=== PATIENT | male | born 1965 | race Caucasian/White ===

== ENCOUNTER 2018-09-03 20:10 | Emergency (ER) | payer SELFPAY ==
[~2018-09-03] VITALS: Ht 175.3 cm; Wt 118.2 kg
[2018-09-03 21:00] LABS: APPEARANCE, URINE CLEAR (CLEAR); BACTERIA, URINE AUTO NEGATIVE (NEGATIVE); BILIRUBIN, URINE AUTO NEGATIVE (NEGATIVE); BLOOD, URINE BLOOD NEGATIVE (NEGATIVE); COLOR, URINE STRAW (YELLOW); GLUCOSE, URINE (UA) AUTO NEGATIVE (NEGATIVE); KETONE, URINE AUTO NEGATIVE (NEGATIVE); LEUKOCYTE ESTERASE, URINE AUTO NEGATIVE (NEGATIVE); NITRITE, URINE AUTO NEGATIVE (NEGATIVE); PROTEIN, URINE AUTO NEGATIVE (NEGATIVE); RBC, URINE AUTO 1 /HPF (0-3); SPECIFIC GRAVITY URINE AUTO 1.006 (1.002-1.035); SQUAMOUS EPITHELIAL CELL UR AU 0 /HPF (0-6); UROBILINOGEN, URINE AUTO 0.2 mg/dL (0.0-2.0); WBC, URINE AUTO 0 /HPF (0-3)
[2018-09-03] MEDS ORDERED: ONDANSETRON 4MG/2ML VIAL (J2405) IV ONE (22:15)
[2018-09-03] MEDS ORDERED: NS 1,000 ML IV ONE (22:15)
[2018-09-03 23:09] LABS: BASO % 0.5 % (0.0-1.0); EOS # 0.2 10^3/uL (0.0-0.50); EOS % 2.1 % (0.0-3.0); HEMATOCRIT 41.5 % (42.0-52.0); HEMOGLOBIN 14.2 g/dl (13.5-17.5); LYMPH # 2.2 10^3/uL (1.5-4.5); LYMPH % 26.9 % (24.0-44.0); MEAN CORPUSCULAR HEMOGLOBIN 30.5 pg (27.0-33.0); MEAN CORPUSCULAR HGB CONC 34.2 g/dl (32.0-36.5); MEAN CORPUSCULAR VOLUME 89.2 fl (80.0-96.0); MONO # 0.7 10^3/uL (0.0-0.8); MONO % 8.4 % (0.0-5.0); NEUTROPHILS % 61.9 % (36.0-66.0); PLATELET COUNT, AUTOMATED 255 10^3/uL (150-450); RED BLOOD COUNT 4.65 10^6/uL (4.30-6.10); WHITE BLOOD COUNT 8.1 10^3/uL (4.0-10.0)
[2018-09-03 23:30] LABS: ALBUMIN 4.1 GM/DL (3.2-5.2); ALT/SGPT 40 U/L (12-78); BILIRUBIN,DIRECT 0.3 MG/DL (0.0-0.2); BLOOD UREA NITROGEN 16 MG/DL (7-18); CALCIUM LEVEL 9.2 MG/DL (8.5-10.1); CARBON DIOXIDE LEVEL 28 MEQ/L (21-32); CHLORIDE LEVEL 105 MEQ/L (98-107); CREATININE FOR GFR 1.16 MG/DL (0.70-1.30); GLOMERULAR FILTRATION RATE > 60.0 (>56); GLUCOSE, FASTING 107 MG/DL (70-100); LIPASE 123 U/L (73-393); POTASSIUM SERUM 3.8 MEQ/L (3.5-5.1); SODIUM LEVEL 140 MEQ/L (136-145); TOTAL PROTEIN 7.2 GM/DL (6.4-8.2)
[2018-09-03 23:32] LABS: CK-MB VALUE MASS 1.2 NG/ML (<3.6); CPK CREATINE PHOSPHOKINASE 117 U/L (39-308); MB/CK RELATIVE INDEX 1.03 (< OR =4); TROPONIN I < 0.02 NG/ML (< 0.10)
[2018-09-03] MEDS ORDERED: KETOROLAC 30 MG/ML VIAL (J1885) IV ONE (23:45)
--- NOTE | 2018-09-04 00:19 | REPVR ---
EXAM: CT Abdomen and Pelvis Without Contrast EXAM DATE/TIME: 09/03/2018 11:23 PM CLINICAL HISTORY: 52 years old, male; Abdominal pain; Flank; Right; Additional info: R flank pain TECHNIQUE: Imaging protocol: Axial computed tomography images of the abdomen and pelvis without contrast. Coronal and sagittal reformatted images were created and reviewed. Radiation optimization: All CT scans at this facility use at least one of these dose optimization techniques: automated exposure control; mA and/or kV adjustment per patient size (includes targeted exams where dose is matched to clinical indication); or iterative reconstruction. COMPARISON: No relevant prior studies available. Study limitations: Evaluation for mass, inflammatory change, including bowel wall/fold thickening, viscera, and vasculature, is suboptimal without contrast. FINDINGS: LUNG BASES: No infiltrate or effusion. VASCULAR: No abdominal aortic aneurysm or retroperitoneal hematoma. Minimal atherosclerosis. PERITONEAL : No free air or free fluid. GI: No hiatal hernia. The stomach contains ingested material, fluid and gas. No perigastric or periduodenal inflammatory stranding. No asymmetric small bowel dilation to suggest obstruction. There is no focal mesenteric inflammatory stranding. No mesenteric lymphadenopathy by size criteria. The sigmoid colon is redundant and folded upon itself in the anterior central abdomen. The folded segment is distended up to 7 cm in diameter. No rotation of the mesentery is seen to suggest that this is a volvulus. Scattered fecal material and gas within portions of the colon. The cecum is distended up to 6.5 cm with fecal material. Clinical correlation for constipation. There is diverticulosis but no evidence of acute diverticulitis. The appendix is not visualized. No secondary inflammation of the cecal apex. HEPATOBILIARY, PANCREAS, SPLEEN: Sagittal hepatic length is 20.9 cm. Hepatic attenuation is consistent with fatty infiltration. Partially contracted gallbladder. No calcified gallstones. Thickwalled appearance of the gallbladder, likely artifact secondary to insufficient distention. No pancreatic inflammation. Spleen not enlarged. ADRENALS, KIDNEYS, BLADDER, RETROPERITONEAL: Adrenals within normal limits. No hydronephrosis. Punctate nonobstructing calculus within the right kidney. No other renal calculi are seen. Mild nonspecific perinephric stranding. No ureteral calculi. No calculi within the urinary bladder. The urinary bladder appears slightly thick walled. This could be correlated for any possibility of cystitis but may be artifactual, secondary to incomplete distention. Slight prominence of the prostate impressing along the base of the bladder. MUSCULOSKELETAL: Small fat containing umbilical hernia. Prominent fat within the inguinal canals. Degenerative changes in the spine and within the pelvis. IMPRESSION: Punctate nonobstructing right renal calculus. No hydronephrosis or obstructive calculi bilaterally. Thick walled urinary bladder to be correlated clinically but may be artifactual. No free air, free fluid or focal mesenteric inflammation. Nonspecific gastrointestinal findings as discussed above. Other incidental and non-emergent findings and study limitations discussed above. Electronically signed by: Liban Ponce On 09/04/2018 00:19:08 AM
[2018-09-04] MEDS ORDERED: NORC1TAB7 PO (00:48)
[2018-09-04] MEDS ORDERED: ONDA4TAB6 PO (00:48)
[2018-09-04] MEDS ORDERED: FLOM0.4C39 PO (00:48)
[2018-09-04] MEDS ORDERED: NORCO 5/325MG TABLET (BULK FOR ED) PO ONE (01:00)
[2018-09-04 01:03] VITALS: BP 158/82
--- NOTE | 2018-09-04 16:15 | ECGEPIP ---
[facility] - ED Test Date: 2018-09-03 Pat Name: VENESSA MCCARTY Department: Room: - Gender: Male [employer] Meat: BRIANDA : 1965 Requested By: WEI Carrasco PA-C Order Number: [id number] Reading MD: Vanessa Hernandez Measurements Intervals [place] Rate: 86 P: 74 MT: 172 QRS: 61 QRSD: 115 T: 22 QT: 364 QTc: 435 Interpretive Statements SINUS RHYTHM POSSIBLE LEFT ATRIAL ENLARGEMENT MODERATE INTRAVENTRICULAR CONDUCTION DELAY Inferior infarct age indeterminate NO PRIOR FOR COMPARISON Electronically Signed on 09-04-2018 16:15:47 EDT by Vanessa Hernandez
== END 2018-09-04 01:05 | disposition home or self-care (01) ==
LOC: M ED 20:10
DX: K57.30 Diverticulosis of large intestine without perforation or abscess without bleeding (principal); N20.0 Calculus of kidney; K42.9 Umbilical hernia without obstruction or gangrene; K76.0 Fatty (change of) liver, not elsewhere classified; Z72.0 Tobacco use
CPT/HCPCS: 36415; 74176; 80048; 80076; 81001; 82550; 82553; 83690; 84484; 85025; 85379; 93005; 96361; 96374; 96375; 99284; J1885; J2405

== ENCOUNTER → 2021-06-03 | Outpatient (CLI) | payer OTHER ==
[~2021-06-03] MED LIST: FLOM0.4C39 PO; NORC1TAB7 PO; ONDA4TAB6 PO
== END ==
LOC: M RAD 07:42
PROVIDERS: ATTEND Physician Assistant Medical
DX: R10.11 Right upper quadrant pain (principal)

== ENCOUNTER → 2022-04-25 | Outpatient (REF) | payer OTHER ==
[2022-04-25 13:21] LABS: BASO # 0.1 10^3/uL (0.0-0.2); BASO % 0.6 % (0.0-1.0); EOS # 0.1 10^3/uL (0.0-0.5); EOS % 1.4 % (0.0-3.0); HEMATOCRIT 43.4 % (42.0-52.0); HEMOGLOBIN 14.6 g/dl (13.5-17.5); LYMPH # 1.8 10^3/uL (1.5-5.0); LYMPH % 23.2 % (24.0-44.0); MEAN CORPUSCULAR HEMOGLOBIN 30.7 pg (27.0-33.0); MEAN CORPUSCULAR HGB CONC 33.6 g/dl (32.0-36.5); MEAN CORPUSCULAR VOLUME 91.2 fl (80.0-96.0); MONO # 0.6 10^3/uL (0.0-0.8); MONO % 7.7 % (2.0-8.0); NEUTROPHILS # 5.2 10^3/uL (1.5-8.5); NEUTROPHILS % 66.7 % (36.0-66.0); PLATELET COUNT, AUTOMATED 265 10^3/uL (150-450); RED BLOOD COUNT 4.76 10^6/uL (4.30-6.10); WHITE BLOOD COUNT 7.8 10^3/uL (4.0-10.0)
[2022-04-25 14:00] LABS: ALBUMIN 4.3 G/DL (3.2-5.2); ALKALINE PHOSPHATASE 62 U/L (46-116); ALT/SGPT 37 U/L (7.0-40); AST/SGOT 36 U/L (<34); BILIRUBIN,TOTAL 1.5 MG/DL (0.3-1.2); BLOOD UREA NITROGEN 21 MG/DL (9-23); CALCIUM LEVEL 9.8 MG/DL (8.5-10.1); CARBON DIOXIDE LEVEL 30 MMOL/L (20-31); CHLORIDE LEVEL 98 MMOL/L (98-107); CHOLESTEROL LEVEL 127 MG/DL (<200); CHOLESTEROL RISK RATIO 3.09 (<5); CREATININE FOR GFR 1.13 MG/DL (0.70-1.30); GLOMERULAR FILTRATION RATE > 60.0 (>56); GLUCOSE, FASTING 94 MG/DL (60-100); LDL CHOLESTEROL 64.2 MG/DL (<100); NON-HDL-C 86 MG/DL; POTASSIUM SERUM 4.1 MMOL/L (3.5-5.1); SODIUM LEVEL 136 MMOL/L (136-145); THYROID STIMULATING HORMONE 1.663 uIU/ML (0.55-4.78); TOTAL PROTEIN 7.6 G/DL (5.7-8.2); TRIGLYCERIDES LEVEL 109 MG/DL (<150)
[2022-04-26 15:08] LABS: TESTOSTERONE FREE (DIRECT) 10.2 pg/mL (7.2-24.0)
== END ==
LOC: M SFHCADAM 09:40
PROVIDERS: ATTEND Physician Assistant Medical
DX: I10 Essential (primary) hypertension (principal); I48.0 Paroxysmal atrial fibrillation; E66.01 Morbid (severe) obesity due to excess calories; R68.82 Decreased libido; N52.9 Male erectile dysfunction, unspecified; Z12.5 Encounter for screening for malignant neoplasm of prostate